=== PATIENT | male | born 1950 | race Caucasian/White ===

== ENCOUNTER 2017-08-28 17:43 | Emergency (ER) | payer MEDICARE ==
--- NOTE | 2017-08-28 18:09 | EDM.PDOC ---
ED HPI GENERAL MEDICAL PROBLEM - General Stated Complaint: LETHARGIC Time Seen by Provider: 08/28/17 17:45 Source of Information: Reports: EMS History Limitations: Reports: Uncooperative - History of Present Illness INITIAL COMMENTS - FREE TEXT/NARRATIVE: c/o weakness limited info available on pt arrival at ED per EMS pt was with family in [place] today, functional level uncertain return to assisted living, gets meals, self admiinsters meds, staffed called EMS for dec'd alertness vss stable here except for borderline low BP h/o PD does squeee fingers and wiggle toes on command, not answering questions RN trying to contact family septic w/u initiated altho he looks more to be in locked-in state - Related Data Allergies Allergy/AdvReac Type Severity Reaction Status Date / Time No Known Allergies Allergy Verified 08/28/17 17:52 Home Meds: Home Meds Amoxicillin 500 mg ASDIRECTED 08/28/17 [History] Carbidopa/Levodopa [Carbidopa-Levodopa 25-250] 1 tab 6XDAY 08/28/17 [History] Entacapone [Comtan] 200 mg PO 6XDAY 08/28/17 [History] Propranolol [Inderal LA 24 Hr] 40 mg PO BID 08/28/17 [History] atorvaSTATin [Lipitor] 10 mg PO BEDTIME 08/28/17 [History] glyBURIDE [Micronase] 5 mg BID 08/28/17 [History] metFORMIN HCl [Metformin HCl] 500 mg BID 08/28/17 [History] ED ROS GENERAL - Review of Systems Review Of Systems: See Below Constitutional: Reports: No Symptoms HEENT: Reports: No Symptoms Respiratory: Reports: No Symptoms Cardiovascular: Reports: No Symptoms Endocrine: Reports: No Symptoms GI/Abdominal: Reports: No Symptoms : Reports: No Symptoms Musculoskeletal: Reports: No Symptoms Skin: Reports: No Symptoms Neurological: Reports: Other (after D50 pt with no c/o's) Psychiatric: Reports: No Symptoms Hematologic/Lymphatic: Reports: No Symptoms Immunologic: Reports: No Symptoms ED EXAM, GENERAL - Physical Exam Exam: See Below Exam Limited By: Altered Mental Status General Appearance: WD/WN, No Apparent Distress Ears: Normal External Exam, Normal Canal Nose: Normal Inspection, Normal Mucosa, No Blood Throat/Mouth: Normal Inspection, Normal Lips, No Airway Compromise Head: Atraumatic Neck: Normal Inspection, Supple, Non-Tender, Full Range of Motion Respiratory/Chest: No Respiratory Distress, Lungs Clear, Normal Breath Sounds, No Accessory Muscle Use, Chest Non-Tender Cardiovascular: Regular Rate, Rhythm, No Edema, No Gallop, No JVD, No Murmur, No Rub GI/Abdominal: Normal Bowel Sounds, Soft, Non-Tender, No Distention Back Exam: Normal Inspection, Full Range of Motion, NT Extremities: Normal Inspection, Other (cogwheeling ext x 4, pill roll of R thumb and index finger, no jerks) Neurological: Normal Reflexes, Other (no obvious deficits, limited cooperation, squeezes hands b/l, wiggles toes b/l, DTR 1-2+ x 6, toes downgoing, no clonus , mild cogwheeling x 4) Skin Exam: Warm, Dry, Intact, Normal Color, No Rash Lymphatic: No Adenopathy Course - Vital Signs Last Recorded V/S: Last Vital Signs Temp 36.2 C 08/28/17 17:43 Pulse 55 L 08/28/17 17:43 Resp BP 114/90 08/28/17 17:43 Pulse Ox 97 08/28/17 17:43 - Orders/Labs/Meds Orders: Active Orders 24 hr Category Date Time Status Accu Check [Blood Glucose Check, Bedside] [RC] ONETIME Care 08/28/17 19:37 Active Chest 1V Frontal [CR] Stat Exams 08/28/17 17:52 Ordered Head wo Cont [CT] Stat Exams 08/28/17 17:52 Ordered CULTURE BLOOD [BC] Urgent Lab 08/28/17 17:54 Ordered CULTURE BLOOD [BC] Urgent Lab 08/28/17 17:54 Ordered UA W/MICROSCOPIC [URIN] Stat Lab 08/28/17 17:52 Ordered Blood Culture x2 Reflex Set [OM.PC] Urgent Oth 08/28/17 17:53 Ordered Labs: Laboratory Tests 08/28/17 08/28/17 08/28/17 Range/Units 18:10 18:10 18:10 WBC 8.5 (4.5-12.0) X10-3/uL RBC 4.27 L (4.30-5.75) x10(6)uL Hgb 14.1 (11.5-15.5) g/dL Hct 41.0 (30.0-51.3) % MCV 96.0 (80-96) fL MCH 33.0 (27.7-33.6) pg MCHC 34.3 (32.2-35.4) g/dL RDW 12.6 (11.5-15.5) % Plt Count 114 L (125-369) X10(3)uL MPV 10.2 (7.4-10.4) fL Neut % (Auto) 75.8 (46-82) % Lymph % (Auto) 12.6 L (13-37) % [place] % (Auto) 6.9 (4-12) % Eos % (Auto) 4 (1.0-5.0) % Baso % (Auto) 0 (0-2) % Neut # (Auto) 6.4 (1.6-8.3) # Lymph # (Auto) 1.1 (0.6-5.0) # [place] # (Auto) 0.6 (0.0-1.3) # Eos # (Auto) 0.4 (0.0-0.8) # Baso # (Auto) 0.0 (0.0-0.2) # Sodium 139 (135-145) mmol/L Potassium 5.1 (3.5-5.3) mmol/L Chloride 103 (100-110) mmol/L Carbon Dioxide 29 (21-32) mmol/L BUN 23 H (7-18) mg/dL Creatinine 0.8 (0.70-1.30) mg/dL Est Cr Clr Drug Dosing TNP Estimated GFR (MDRD) > 60 (>60) BUN/Creatinine Ratio 28.8 H (9-20) Glucose 43 L* (80-116) mg/dL POC Glucose (80-116) mg/dL Lactic Acid (0.4-2.2) mmol/L Calcium 9.1 (8.6-10.2) mg/dL Total Bilirubin 0.7 (0.1-1.3) mg/dL AST 18 (5-25) IU/L ALT 8 L (12-36) U/L Alkaline Phosphatase 77 (56-112) IU/L Troponin I < 0.017 L (<0.017-0.056) ng/mL C-Reactive Protein < 0.2 L (0.5-0.9) mg/dL NT-Pro-B Natriuret Pep 329 H (<=125) pg/mL Total Protein 7.1 (6.0-8.0) g/dL Albumin 3.8 (3.2-4.6) g/dL Globulin 3.3 g/dL Albumin/Globulin Ratio 1.2 TSH, Ultra Sensitive 1.32 (0.36-3.74) IU/mL 08/28/17 08/28/17 Range/Units 18:10 19:36 WBC (4.5-12.0) X10-3/uL RBC (4.30-5.75) x10(6)uL Hgb (11.5-15.5) g/dL Hct (30.0-51.3) % MCV (80-96) fL MCH (27.7-33.6) pg MCHC (32.2-35.4) g/dL RDW (11.5-15.5) % Plt Count (125-369) X10(3)uL MPV (7.4-10.4) fL Neut % (Auto) (46-82) % Lymph % (Auto) (13-37) % [place] % (Auto) (4-12) % Eos % (Auto) (1.0-5.0) % Baso % (Auto) (0-2) % Neut # (Auto) (1.6-8.3) # Lymph # (Auto) (0.6-5.0) # [place] # (Auto) (0.0-1.3) # Eos # (Auto) (0.0-0.8) # Baso # (Auto) (0.0-0.2) # Sodium (135-145) mmol/L Potassium (3.5-5.3) mmol/L Chloride (100-110) mmol/L Carbon Dioxide (21-32) mmol/L BUN (7-18) mg/dL Creatinine (0.70-1.30) mg/dL Est Cr Clr Drug Dosing Estimated GFR (MDRD) (>60) BUN/Creatinine Ratio (9-20) Glucose (80-116) mg/dL POC Glucose 128 H (80-116) mg/dL Lactic Acid 0.6 (0.4-2.2) mmol/L Calcium (8.6-10.2) mg/dL Total Bilirubin (0.1-1.3) mg/dL AST (5-25) IU/L ALT (12-36) U/L Alkaline Phosphatase (56-112) IU/L Troponin I (<0.017-0.056) ng/mL C-Reactive Protein (0.5-0.9) mg/dL NT-Pro-B Natriuret Pep (<=125) pg/mL Total Protein (6.0-8.0) g/dL Albumin (3.2-4.6) g/dL Globulin g/dL Albumin/Globulin Ratio TSH, Ultra Sensitive (0.36-3.74) IU/mL Meds: Medications Discontinued Medications Generic Name Dose Route Start Last Admin Trade Name Mitchq PRN Reason Stop Dose Admin Dextrose/Water 50 ml 08/28/17 18:53 Dextrose 50% In Water IVPUSH 08/28/17 18:54 ONETIME ONE Dextrose/Water Confirm 08/28/17 18:53 Dextrose 50% In Water Administered 08/28/17 18:54 Dose 50 ml .ROUTE .STK-MED ONE Sodium Chloride 1,000 mls @ 999 mls/hr 08/28/17 19:30 Normal Saline IV 09/01/17 19:26 ASDIRECTED LULU - Re-Assessments/Exams Free Text/Narrative Re-Assessment/Exam: 08/28/17 19:19 initial BS per EMS 71, however here lab reports 43, pt given amp D50 and felt fine son now here pt with no previous low BS, reports he did not feel right on the return ride from [place] with his sister he is looking to get a new w/c after having one on loan for 1m, has been in discussion with PCP in this regard high BS once when dx with DM, says his A1C have been good and Dr Conroy has advised him that he did not need to check it no comparison labs does have inc'd BUN 23 c/w dehydration vs possible mild HF (BNP also inc'd 329, which may be acute from hypoglycemia and adrenergic stress rather than chronic) no evidence infection pt agrees to f/u with Free Text/Narrative Re-Assessment/Exam: 08/28/17 20:06 CxR shows mild pul congestion and borderline cardiomegaly echo cardiogram scheduled in 2d at 10 AM d/w PCP Dr Conroy at home to alert him about potential new cardiac and renal issues will stop the glyburide for now pt ate peanut butter and crackers here and agreed to eat more when he got home repeat BS > 100 Departure - Departure Time of Disposition: 20:09 Disposition: Home, Self-Care 01 Condition: Good Clinical Impression: Hypoglycemia, Heart failure, Pulmonary vascular congestion, Renal insufficiency , mild - Discharge Information Referrals: PCP,None [Ordering Only Provider] - Forms: ED Department Discharge Additional Instructions: Come to [facility] for a echocardigram on August 30 at 10 am. Make appointment to see Dr Conroy in 2 days on Saturday afternoon. Stop the glyburide. Continue your other meds. Eat something when you get home tonight. Increase your fluids without caffeine. If you are feeling lightheaded or not yourself, check your blood sugar if possible and then drink some orange juice. Or just drink some orange juice to see if it helps feel better. Do not skip meals. May eat a light evening snack. Call your Physician or Return to Emergency Department if: * Your condition worsens in any way. * You develop fever greater than 100.4. * You have vomitting that does not stop with medications. * You have pain that is not controlled with medications. - My Orders Last 24 Hours: My Active Orders 08/28/17 17:52 Chest 1V Frontal [CR] Stat Head wo Cont [CT] Stat UA W/MICROSCOPIC [URIN] Stat 08/28/17 17:53 Blood Culture x2 Reflex Set [OM.PC] Urgent 08/28/17 17:54 CULTURE BLOOD [BC] Urgent CULTURE BLOOD [BC] Urgent 08/28/17 19:37 Accu Check [Blood Glucose Check, Bedside] [RC] ONETIME - Assessment/Plan Last 24 Hours: My Active Orders 08/28/17 17:52 Chest 1V Frontal [CR] Stat Head wo Cont [CT] Stat UA W/MICROSCOPIC [URIN] Stat 08/28/17 17:53 Blood Culture x2 Reflex Set [OM.PC] Urgent 08/28/17 17:54 CULTURE BLOOD [BC] Urgent CULTURE BLOOD [BC] Urgent 08/28/17 19:37 Accu Check [Blood Glucose Check, Bedside] [RC] ONETIME
[2017-08-28] MEDS ORDERED: 50% Dextrose in Water 50 ML Syringe ONE (18:53)
[2017-08-28] MEDS ORDERED: 50% Dextrose in Water 50 ML Syringe IVPUSH ONE (18:53)
[2017-08-28] MEDS ORDERED: Sodium Chloride 0.9% 1,000 ML IV SCH (19:30)
[2017-08-28] MEDS ORDERED: Sodium Chloride 0.9% 10 ML Syringe FLUSH PRN (20:22)
--- NOTE | 2017-08-30 11:01 | CR ---
INDICATION: Weak. CHEST: An AP upright portable view of the chest was obtained 08/28/2017 - no comparisons. The heart appears slightly enlarged. The aorta is tortuous with calcification in the arch. Overlying snaps and EKG leads are noted. Central infiltration is noted which may be on the basis of interstitial lung edema or possibly pneumonia and/or fibrosis. The upper lung field pulmonary vasculature did not appear grossly prominent to strongly suggest CHF, however. No gross consolidating pneumonia or definite effusion was seen. IMPRESSION: Bilateral interstitial changes centrally could represent pulmonary edema, but should be correlated clinically. The heart is enlarged and a mild degree of CHF could be present, but is not definite, since the upper lung field pulmonary vasculature does not appear significantly prominent. The interstitial changes could be on the basis of other than pulmonary vascular congestion, such as pneumonia and possibly fibrosis. MTDD
== END 2017-08-28 20:20 | disposition home or self-care (01) ==
LOC: FB.ED 17:43
DX: I50.9 Heart failure, unspecified (principal); E16.2 Hypoglycemia, unspecified; N28.9 Disorder of kidney and ureter, unspecified; R09.89 Other specified symptoms and signs involving the circulatory and respiratory systems
CPT/HCPCS: 36415; 70450; 71045; 80053; 81001; 82962; 83605; 83880; 84443; 84484; 85025; 86140; 87040; 96374; 99284

== ENCOUNTER 2021-03-18 12:27 | Inpatient (IN) | payer MEDICARE ==
--- NOTE | 2021-03-18 12:35 | EDM.PDOC ---
ED HPI GENERAL MEDICAL PROBLEM - General Stated Complaint: general Time Seen by Provider: 03/18/21 12:29 Source of Information: Reports: Patient, EMS History Limitations: Reports: Other (sever parkinson ) - History of Present Illness INITIAL COMMENTS - FREE TEXT/NARRATIVE: pt had unwitnessed fall at assisted living in his bathroom, pt head was found stuck in area between tolet seat and wall, he was alert, c/o pain at right hip , pt is minimally verbal and unable to provide Hx, he has Hx of frequent falls, and sever Parkinson according to staff at assisted living he is at base line in term of level of functions after the fall. - Related Data Allergies Allergy/AdvReac Type Severity Reaction Status Date / Time No Known Allergies Allergy Verified 03/18/21 12:57 Home Meds: Home Meds Amoxicillin 500 mg ASDIRECTED 08/28/17 [History] Carbidopa/Levodopa [Carbidopa-Levodopa 25-250] 1 tab 6XDAY 08/28/17 [History] Entacapone [Comtan] 200 mg PO 6XDAY 08/28/17 [History] Propranolol [Inderal LA 24 Hr] 40 mg PO BID 08/28/17 [History] atorvaSTATin [Lipitor] 10 mg PO BEDTIME 08/28/17 [History] glyBURIDE [Micronase] 5 mg BID 08/28/17 [History] metFORMIN HCl [Metformin HCl] 500 mg BID 08/28/17 [History] Past Medical History Cardiovascular History: Reports: High Cholesterol Neurological History: Reports: Parkinson's Endocrine/Metabolic History: Reports: Diabetes, Type II - Infectious Disease History Infectious Disease History: Reports: Chicken Pox, Measles, Mumps Social & Family History - Family History Family Medical History: No Pertinent Family History - Caffeine Use Caffeine Use: Reports: None ED ROS GENERAL - Review of Systems Review Of Systems: Unable To Obtain (Parkinson) Reason Not Obtained: Parkinson ED EXAM, GENERAL - Physical Exam Exam: See Below Exam Limited By: Other (Parkinson) General Appearance: Alert, Other (moves extremities trak with eyes, makes few words. ) Ears: Normal Canal, Normal TMs Nose: Normal Inspection Throat/Mouth: Normal Inspection, Normal Oropharynx Head: Other (small abrasions over the top and right side of scalp , no hematomas. ) Neck: Normal Inspection, Supple Respiratory/Chest: No Respiratory Distress, Lungs Clear Cardiovascular: Normal Peripheral Pulses, Regular Rate, Rhythm GI/Abdominal: Normal Bowel Sounds, Soft Back Exam: Normal Inspection Extremities: Other (groseely intact but seems to be tender with movement of right hip. ) Neurological: Alert, Other (moves all extremities and CN are grossely intact. ) Skin Exam: Warm Course - Vital Signs Text/Narrative:: pt has urosepsis, imaging results shows no acute findings or injuries after the fall. pt condition was discussed w Dr Miller and he was in acceptance of pt care. Last Recorded V/S: Last Vital Signs Temp 37.7 C 03/18/21 12:27 Pulse 95 03/18/21 12:27 Resp 18 03/18/21 12:27 BP 159/96 H 03/18/21 12:27 Pulse Ox 97 03/18/21 12:27 - Orders/Labs/Meds Orders: Active Orders 24 hr Category Date Time Status Head wo Cont [CT] Stat Exams 03/18/21 12:37 Taken Hip Min 2V or 3V w Pelvis Rt [CR] Stat Exams 03/18/21 12:37 Taken CULTURE URINE [RM] Stat Lab 03/18/21 14:29 Ordered Labs: Laboratory Tests 03/18/21 03/18/21 03/18/21 Range/Units 12:50 12:50 14:10 WBC 21.1 H (3.2-10.1) x10-3/uL RBC 3.92 (3.90-5.90) x10(6)uL Hgb 11.9 L (12.9-17.7) g/dL Hct 36.3 L (38.3-50.1) % MCV 92.7 (80.8-98.7) fL MCH 30.3 (27.0-33.3) pg MCHC 32.7 (28.7-35.3) g/dL RDW 12.8 (12.4-15.0) % Plt Count 120 (117-477) x10(3)uL MPV 9.7 (6.7-11.0) fL Add Manual Diff Yes Neutrophils % (Manual) 94 H (46-82) % Lymphocytes % (Manual) 4 L (13-37) % Monocytes % (Manual) 2 L (4-12) % Sodium 137 (135-145) mmol/L Potassium 4.4 (3.5-5.3) mmol/L Chloride 102 (100-110) mmol/L Carbon Dioxide 24 (21-32) mmol/L BUN 29 H (7-18) mg/dL Creatinine 1.3 (0.70-1.30) mg/dL Est Cr Clr Drug Dosing TNP Estimated GFR (MDRD) 55 L (>60) BUN/Creatinine Ratio 22.3 H (9-20) Glucose 94 (80-116) mg/dL Calcium 8.8 (8.6-10.2) mg/dL Total Bilirubin 1.9 H (0.1-1.3) mg/dL AST 30 H D (5-25) IU/L ALT 8 L (12-36) U/L Alkaline Phosphatase 105 (56-112) IU/L Total Protein 7.1 (6.0-8.0) g/dL Albumin 3.5 (3.2-4.6) g/dL Globulin 3.6 g/dL Albumin/Globulin Ratio 1.0 Urine Color Yellow (YELLOW) Urine Appearance Cloudy (CLEAR) Urine pH 5.0 (5.0-6.5) Ur Specific [place] 1.015 (1.010-1.025) Urine Protein Trace (NEGATIVE) mg/dL Urine Glucose (UA) Normal (NORMAL) mg/dL Urine Ketones 50 H (NEGATIVE) mg/dL Urine Occult Blood Large H (NEGATIVE) Urine Nitrite Positive H (NEGATIVE) Urine Bilirubin Negative (NEGATIVE) Urine Urobilinogen Normal (NEGATIVE) mg/dL Ur Leukocyte Esterase Moderate H (NEGATIVE) Urine RBC 30-40 H (0-5) Urine WBC 40-50 H (0-5) Ur Squamous Epith Cells Few H (NS,R,O) Urine Bacteria Many H (NS) Departure - Departure Time of Disposition: 14:41 Disposition: Admitted As Inpatient 67 Clinical Impression: Sepsis due to urinary tract infection - Discharge Information Sepsis Event Note (ED) - Focused Exam Vital Signs: Vital Signs Temp Pulse Resp BP Pulse Ox 03/18/21 12:27 37.7 C 95 18 159/96 H 97 - My Orders Last 24 Hours: My Active Orders 03/18/21 12:37 Head wo Cont [CT] Stat Hip Min 2V or 3V w Pelvis Rt [CR] Stat 03/18/21 14:29 CULTURE URINE [RM] Stat - Assessment/Plan Last 24 Hours: My Active Orders 03/18/21 12:37 Head wo Cont [CT] Stat Hip Min 2V or 3V w Pelvis Rt [CR] Stat 03/18/21 14:29 CULTURE URINE [RM] Stat
[2021-03-18] MEDS ORDERED: Ciprofloxacin in D5W 200 MG in Premix Bag 1 BAG IV SCH ×2 (15:00)
[2021-03-18] MEDS: Sodium Chloride 0.9% 1,000 ML IV SCH (17:11)
[2021-03-18] MEDS: Ciprofloxacin in D5W 200 MG in Premix Bag 1 BAG IV SCH ×2 (17:24)
--- NOTE | 2021-03-18 18:18 | PCM.HP.2 ---
H&P History of Present Illness - General Date of Service: 03/18/21 Admit Problem/Dx: Admission Diagnosis/Problem Admission Diagnosis/Problem Urinary tract bacterial infections History Limitations: Reports: Language Barrier - History of Present Illness Initial Comments - Free Text/Narative: Akash is a 70-year-old male who came in from assisted living, after fall. He was found in the bathroom, unwitnessed fall. He complained of mild hip pain, is found to be generally weak and nonambulatory. Typically, he walks with a walker at home in his own home but he is in an assisted living situation at [facility]. He has severe. In the ED, he was found to a negative CT of the head, hip x-ray, but I white cell count of 21,000. His urine also had positive nitrites and white cells. Right Hip Pain Score (Numeric/FACES): 5 - Related Data Allergies/Adverse Reactions: Allergies Allergy/AdvReac Type Severity Reaction Status Date / Time No Known Allergies Allergy Verified 03/18/21 17:11 Home Medications: Home Meds Amoxicillin 500 mg ASDIRECTED 08/28/17 [History] Carbidopa/Levodopa [Carbidopa-Levodopa 25-250] 25 - 100 mg PO 5XDAY 08/28/17 [History] Entacapone [Comtan] 200 mg PO 6XDAY 08/28/17 [History] Propranolol [Inderal LA 24 Hr] 40 mg PO BID 08/28/17 [History] atorvaSTATin [Lipitor] 10 mg PO BEDTIME 08/28/17 [History] glyBURIDE [Micronase] 5 mg BID 08/28/17 [History] metFORMIN HCl [Metformin HCl] 500 mg BID 08/28/17 [History] Aspirin 81 mg PO DAILY 03/18/21 [History] Carbidopa/Levodopa [Carbidopa-Levo 25-250 mg Odt] 25 - 250 mg PO Q3H 03/18/21 [History] Past Medical History Cardiovascular History: Reports: High Cholesterol Neurological History: Reports: Parkinson's Endocrine/Metabolic History: Reports: Diabetes, Type II - Infectious Disease History Infectious Disease History: Reports: Chicken Pox, Measles, Mumps Social & Family History - Family History Family Medical History: No Pertinent Family History - Tobacco Use Tobacco Use Status *Q: Unknown Ever Used Tobacco - Caffeine Use Caffeine Use: Reports: None H&P Review of Systems - Review of Systems: Review Of Systems: Comprehensive ROS is negative, except as noted in HPI. Exam - Exam Exam: See Below - Vital Signs Vital Signs: Last Vital Signs Temp 100.0 F 03/18/21 17:29 Pulse 80 03/18/21 17:29 Resp 14 03/18/21 17:29 BP 159/104 H 03/18/21 17:29 Pulse Ox 99 03/18/21 17:29 - Exam General: Alert, Oriented HEENT: PERRLA, Conjunctiva Clear Neck: Supple, Lymphadenopathy Lungs: Clear to Auscultation Cardiovascular: Regular Rate GI/Abdominal Exam: Normal Bowel Sounds, Soft Neuro Extensive - Mental Status: Alert, Oriented x3 Psychiatric: Alert, Depressed - Patient Data Lab Results Last 24 hrs: Laboratory Results - last 24 hr 03/18/21 03/18/21 03/18/21 Range/Units 12:50 12:50 14:10 WBC 21.1 H (3.2-10.1) x10-3/uL RBC 3.92 (3.90-5.90) x10(6)uL Hgb 11.9 L (12.9-17.7) g/dL Hct 36.3 L (38.3-50.1) % MCV 92.7 (80.8-98.7) fL MCH 30.3 (27.0-33.3) pg MCHC 32.7 (28.7-35.3) g/dL RDW 12.8 (12.4-15.0) % Plt Count 120 (117-477) x10(3)uL MPV 9.7 (6.7-11.0) fL Add Manual Diff Yes Neutrophils % (Manual) 94 H (46-82) % Lymphocytes % (Manual) 4 L (13-37) % Monocytes % (Manual) 2 L (4-12) % Sodium 137 (135-145) mmol/L Potassium 4.4 (3.5-5.3) mmol/L Chloride 102 (100-110) mmol/L Carbon Dioxide 24 (21-32) mmol/L BUN 29 H (7-18) mg/dL Creatinine 1.3 (0.70-1.30) mg/dL Est Cr Clr Drug Dosing TNP Estimated GFR (MDRD) 55 L (>60) BUN/Creatinine Ratio 22.3 H (9-20) Glucose 94 (80-116) mg/dL Calcium 8.8 (8.6-10.2) mg/dL Total Bilirubin 1.9 H (0.1-1.3) mg/dL AST 30 H D (5-25) IU/L ALT 8 L (12-36) U/L Alkaline Phosphatase 105 (56-112) IU/L Total Protein 7.1 (6.0-8.0) g/dL Albumin 3.5 (3.2-4.6) g/dL Globulin 3.6 g/dL Albumin/Globulin Ratio 1.0 Urine Color Yellow (YELLOW) Urine Appearance Cloudy (CLEAR) Urine pH 5.0 (5.0-6.5) Ur Specific [place] 1.015 (1.010-1.025) Urine Protein Trace (NEGATIVE) mg/dL Urine Glucose (UA) Normal (NORMAL) mg/dL Urine Ketones 50 H (NEGATIVE) mg/dL Urine Occult Blood Large H (NEGATIVE) Urine Nitrite Positive H (NEGATIVE) Urine Bilirubin Negative (NEGATIVE) Urine Urobilinogen Normal (NEGATIVE) mg/dL Ur Leukocyte Esterase Moderate H (NEGATIVE) Urine RBC 30-40 H (0-5) Urine WBC 40-50 H (0-5) Ur Squamous Epith Cells Few H (NS,R,O) Urine Bacteria Many H (NS) SARS-CoV-2 RNA (QIAN) (NEGATIVE) 03/18/21 Range/Units 15:20 WBC (3.2-10.1) x10-3/uL RBC (3.90-5.90) x10(6)uL Hgb (12.9-17.7) g/dL Hct (38.3-50.1) % MCV (80.8-98.7) fL MCH (27.0-33.3) pg MCHC (28.7-35.3) g/dL RDW (12.4-15.0) % Plt Count (117-477) x10(3)uL MPV (6.7-11.0) fL Add Manual Diff Neutrophils % (Manual) (46-82) % Lymphocytes % (Manual) (13-37) % Monocytes % (Manual) (4-12) % Sodium (135-145) mmol/L Potassium (3.5-5.3) mmol/L Chloride (100-110) mmol/L Carbon Dioxide (21-32) mmol/L BUN (7-18) mg/dL Creatinine (0.70-1.30) mg/dL Est Cr Clr Drug Dosing Estimated GFR (MDRD) (>60) BUN/Creatinine Ratio (9-20) Glucose (80-116) mg/dL Calcium (8.6-10.2) mg/dL Total Bilirubin (0.1-1.3) mg/dL AST (5-25) IU/L ALT (12-36) U/L Alkaline Phosphatase (56-112) IU/L Total Protein (6.0-8.0) g/dL Albumin (3.2-4.6) g/dL Globulin g/dL Albumin/Globulin Ratio Urine Color (YELLOW) Urine Appearance (CLEAR) Urine pH (5.0-6.5) Ur Specific [place] (1.010-1.025) Urine Protein (NEGATIVE) mg/dL Urine Glucose (UA) (NORMAL) mg/dL Urine Ketones (NEGATIVE) mg/dL Urine Occult Blood (NEGATIVE) Urine Nitrite (NEGATIVE) Urine Bilirubin (NEGATIVE) Urine Urobilinogen (NEGATIVE) mg/dL Ur Leukocyte Esterase (NEGATIVE) Urine RBC (0-5) Urine WBC (0-5) Ur Squamous Epith Cells (NS,R,O) Urine Bacteria (NS) SARS-CoV-2 RNA (QIAN) Negative (NEGATIVE) Result Diagrams: 03/18/21 12:50 03/18/21 12:50 Sepsis Event Note - Focused Exam Vital Signs: Vital Signs Temp Pulse Resp BP Pulse Ox 03/18/21 17:29 100.0 F 80 14 159/104 H 99 03/18/21 16:30 100 F 97 18 177/100 H 97 03/18/21 12:27 100 F 95 18 159/96 H 97 - Problem List (1) UTI (urinary tract infection) SNOMED Code(s): 19861632 ICD Code: N39.0 - URINARY TRACT INFECTION, SITE NOT SPECIFIED Status: Acute Current Visit: Yes Qualifiers: Urinary tract infection type: site unspecified Hematuria presence: without hematuria Qualified Code(s): N39.0 - Urinary tract infection, site not specified (2) Frequent falls SNOMED Code(s): 361301864 ICD Code: R29.6 - REPEATED FALLS Status: Acute Current Visit: Yes (3) Parkinson disease SNOMED Code(s): 93252831 ICD Code: G20 - PARKINSON'S DISEASE Status: Chronic Current Visit: Yes (4) Controlled type 2 diabetes mellitus SNOMED Code(s): 63710143, 332516838 ICD Code: E11.9 - TYPE 2 DIABETES MELLITUS WITHOUT COMPLICATIONS Status: Acute Current Visit: Yes Qualifiers: 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 Problem List Initiated/Reviewed/Updated: Yes Orders Last 24hrs: Active Orders 24 hr Category Date Time Status Patient Status [ADT] Routine ADT 03/18/21 14:43 Active Oxygen Therapy [RC] PRN Care 03/18/21 14:43 Active VTE/DVT Education [RC] Per Unit Routine Care 03/18/21 14:43 Active Vital Signs [RC] Q4H Care 03/18/21 14:43 Active Head wo Cont [CT] Stat Exams 03/18/21 12:37 Taken Hip Min 2V or 3V w Pelvis Rt [CR] Stat Exams 03/18/21 12:37 Taken CBC WITH AUTO DIFF [HEME] AM Lab 03/19/21 05:11 Ordered COMPREHENSIVE METABOLIC PN,CMP [CHEM] AM Lab 03/19/21 05:11 Ordered CULTURE URINE [RM] Stat Lab 03/18/21 14:10 Received Carbidopa/Levodopa [Sinemet 25-250 mg] Med 03/18/21 18:00 Active 1 tab PO 6XDAY Ciprofloxacin in D5W [Cipro in D5W 200 MG/100 ML] 200 Med 03/18/21 17:30 Active mg Premix Bag 1 bag IV Q12H Entacapone [Comtan] Med 03/18/21 18:00 Active 200 mg PO 6XDAY Propranolol [Inderal LA] Med 03/18/21 21:00 Active 40 mg PO BID Sodium Chloride 0.9% [Normal Saline] 1,000 ml Med 03/18/21 14:45 Active IV ASDIRECTED glyBURIDE [Micronase] Med 03/18/21 21:00 Active 5 mg PO BID metFORMIN [Glucophage] Med 03/18/21 21:00 Active 500 mg PO BID Resuscitation Status Routine Resus Stat 03/18/21 14:42 Ordered Medication Orders Carbidopa/Levodopa (Carbidopa/Levodopa 25-250 Mg Tab) 1 tab PO 6XDAY [facility] Entacapone (Entacapone 200 Mg Tab) 200 mg PO 6XDAY [facility] Glyburide (Glyburide 5 Mg Tab) 5 mg PO BID [facility] Sodium Chloride (Normal Saline) 1,000 mls @ 125 mls/hr IV ASDIRECTED [facility] Last Admin: 03/18/21 17:11 Dose: 125 mls/hr Documented by: VIVIANE Ciprofloxacin/Dextrose 200 mg/ (Premix) 100 mls @ 100 mls/hr IV Q12H [facility] Last Admin: 03/18/21 17:24 Dose: 100 mls/hr Documented by: MEGAN Metformin HCl (Metformin 500 Mg Tab) 500 mg PO BID [facility] Propranolol HCl (Propranolol 80 Mg Cap.Er) 40 mg PO BID [facility] Assessment/Plan Comment:: Admit the patient for IV ciprofloxacin, continue the rest of his prescriptions. Consult physical therapy. Await urine cultures.
[2021-03-18] MEDS: Carbidopa/Levodopa 25-250 MG Tab PO SCH ×2 (18:43→20:56)
[2021-03-18] MEDS: Propranolol 80 MG Cap.ER PO SCH (20:55)
[2021-03-18] MEDS: glyBURIDE 5 MG Tab PO SCH (20:55)
[2021-03-18] MEDS: metFORMIN 500 MG Tab PO SCH (20:55)
[2021-03-18] MEDS: Entacapone 200 MG Tab PO SCH (22:43)
[2021-03-19] MEDS: Sodium Chloride 0.9% 1,000 ML IV SCH (03:28)
[2021-03-19] MEDS: Ciprofloxacin in D5W 200 MG in Premix Bag 1 BAG IV SCH ×4 (04:42→17:36)
[2021-03-19] MEDS: Carbidopa/Levodopa 25-250 MG Tab PO SCH ×6 (05:35→20:07)
[2021-03-19] MEDS: Entacapone 200 MG Tab PO SCH ×6 (05:35→22:41)
--- NOTE | 2021-03-19 09:00 | PCM.PN ---
- General Info Date of Service: 03/19/21 Subjective Update: He is noted to be weak, unable to ambulate independently.Poor historian Functional Status: Reports: Pain Controlled - Review of Systems HEENT: Reports: No Symptoms Pulmonary: Reports: No Symptoms Cardiovascular: Reports: No Symptoms Gastrointestinal: Reports: No Symptoms - Patient Data Vitals - Most Recent: Last Vital Signs Temp 96.8 F L 03/19/21 07:39 Pulse 61 03/19/21 07:39 Resp 18 03/19/21 07:39 BP 103/64 03/19/21 07:39 Pulse Ox 96 03/19/21 07:39 Weight - Most Recent: 72.575 kg I&O - Last 24 Hours: Intake & Output 03/18/21 03/19/21 03/19/21 22:59 06:59 14:59 Intake Total 773 Balance 773 Lab Results Last 24 Hours: Laboratory Results - last 24 hr 03/18/21 03/18/21 03/18/21 Range/Units 12:50 12:50 14:10 WBC 21.1 H (3.2-10.1) x10-3/uL RBC 3.92 (3.90-5.90) x10(6)uL Hgb 11.9 L (12.9-17.7) g/dL Hct 36.3 L (38.3-50.1) % MCV 92.7 (80.8-98.7) fL MCH 30.3 (27.0-33.3) pg MCHC 32.7 (28.7-35.3) g/dL RDW 12.8 (12.4-15.0) % Plt Count 120 (117-477) x10(3)uL MPV 9.7 (6.7-11.0) fL Add Manual Diff Yes Neutrophils % (Manual) 94 H (46-82) % Band Neutrophils % (0-6) % Lymphocytes % (Manual) 4 L (13-37) % Monocytes % (Manual) 2 L (4-12) % Sodium 137 (135-145) mmol/L Potassium 4.4 (3.5-5.3) mmol/L Chloride 102 (100-110) mmol/L Carbon Dioxide 24 (21-32) mmol/L BUN 29 H (7-18) mg/dL Creatinine 1.3 (0.70-1.30) mg/dL Est Cr Clr Drug Dosing TNP Estimated GFR (MDRD) 55 L (>60) BUN/Creatinine Ratio 22.3 H (9-20) Glucose 94 (80-116) mg/dL Calcium 8.8 (8.6-10.2) mg/dL Total Bilirubin 1.9 H (0.1-1.3) mg/dL AST 30 H D (5-25) IU/L ALT 8 L (12-36) U/L Alkaline Phosphatase 105 (56-112) IU/L Total Protein 7.1 (6.0-8.0) g/dL Albumin 3.5 (3.2-4.6) g/dL Globulin 3.6 g/dL Albumin/Globulin Ratio 1.0 Urine Color Yellow (YELLOW) Urine Appearance Cloudy (CLEAR) Urine pH 5.0 (5.0-6.5) Ur Specific [place] 1.015 (1.010-1.025) Urine Protein Trace (NEGATIVE) mg/dL Urine Glucose (UA) Normal (NORMAL) mg/dL Urine Ketones 50 H (NEGATIVE) mg/dL Urine Occult Blood Large H (NEGATIVE) Urine Nitrite Positive H (NEGATIVE) Urine Bilirubin Negative (NEGATIVE) Urine Urobilinogen Normal (NEGATIVE) mg/dL Ur Leukocyte Esterase Moderate H (NEGATIVE) Urine RBC 30-40 H (0-5) Urine WBC 40-50 H (0-5) Ur Squamous Epith Cells Few H (NS,R,O) Urine Bacteria Many H (NS) SARS-CoV-2 RNA (QIAN) (NEGATIVE) 03/18/21 03/19/21 03/19/21 Range/Units 15:20 06:08 06:08 WBC 21.4 H (3.2-10.1) x10-3/uL RBC 4.05 (3.90-5.90) x10(6)uL Hgb 12.2 L (12.9-17.7) g/dL Hct 37.9 L (38.3-50.1) % MCV 93.7 (80.8-98.7) fL MCH 30.2 (27.0-33.3) pg MCHC 32.2 (28.7-35.3) g/dL RDW 13.1 (12.4-15.0) % Plt Count 113 L (117-477) x10(3)uL MPV 9.7 (6.7-11.0) fL Add Manual Diff Yes Neutrophils % (Manual) 88 H (46-82) % Band Neutrophils % 3 (0-6) % Lymphocytes % (Manual) 6 L (13-37) % Monocytes % (Manual) 3 L (4-12) % Sodium 136 (135-145) mmol/L Potassium 3.7 (3.5-5.3) mmol/L Chloride 103 (100-110) mmol/L Carbon Dioxide 27 (21-32) mmol/L BUN 20 H (7-18) mg/dL Creatinine 0.9 (0.70-1.30) mg/dL Est Cr Clr Drug Dosing 79.52 Estimated GFR (MDRD) > 60 (>60) BUN/Creatinine Ratio 22.2 H (9-20) Glucose 56 L (80-116) mg/dL Calcium 8.3 L (8.6-10.2) mg/dL Total Bilirubin 1.0 (0.1-1.3) mg/dL AST 84 H D (5-25) IU/L ALT 15 D (12-36) U/L Alkaline Phosphatase 101 (56-112) IU/L Total Protein 6.6 (6.0-8.0) g/dL Albumin 2.8 L (3.2-4.6) g/dL Globulin 3.8 g/dL Albumin/Globulin Ratio 0.7 Urine Color (YELLOW) Urine Appearance (CLEAR) Urine pH (5.0-6.5) Ur Specific [place] (1.010-1.025) Urine Protein (NEGATIVE) mg/dL Urine Glucose (UA) (NORMAL) mg/dL Urine Ketones (NEGATIVE) mg/dL Urine Occult Blood (NEGATIVE) Urine Nitrite (NEGATIVE) Urine Bilirubin (NEGATIVE) Urine Urobilinogen (NEGATIVE) mg/dL Ur Leukocyte Esterase (NEGATIVE) Urine RBC (0-5) Urine WBC (0-5) Ur Squamous Epith Cells (NS,R,O) Urine Bacteria (NS) SARS-CoV-2 RNA (QIAN) Negative (NEGATIVE) Doe Results Last 24 Hours: Microbiology 03/18/21 14:10 Urine Culture - Preliminary Urine, Voided Gram Negative Rods Med Orders - Current: Current Medications Carbidopa/Levodopa (Carbidopa/Levodopa 25-250 Mg Tab) 1 tab PO 6XDAY [facility] Last Admin: 03/19/21 05:35 Dose: 1 tab Documented by: Entacapone (Entacapone 200 Mg Tab) 200 mg PO 6XDAY [facility] Last Admin: 03/19/21 05:35 Dose: Not Given Documented by: Glyburide (Glyburide 5 Mg Tab) 5 mg PO BID [facility] Last Admin: 03/18/21 20:55 Dose: 5 mg Documented by: Sodium Chloride (Normal Saline) 1,000 mls @ 125 mls/hr IV ASDIRECTED [facility] Last Admin: 03/19/21 03:28 Dose: 125 mls/hr Documented by: Ciprofloxacin/Dextrose 200 mg/ (Premix) 100 mls @ 100 mls/hr IV Q12H [facility] Last Admin: 03/19/21 04:42 Dose: 100 mls/hr Documented by: Metformin HCl (Metformin 500 Mg Tab) 500 mg PO BID [facility] Last Admin: 03/18/21 20:55 Dose: 500 mg Documented by: Propranolol HCl (Propranolol 80 Mg Cap.Er) 40 mg PO BID [facility] Last Admin: 03/18/21 20:55 Dose: 40 mg Documented by: Discontinued Medications Ciprofloxacin/Dextrose 200 mg/ (Premix) 100 mls @ 100 mls/hr IV Q12H [facility] Last Admin: 03/18/21 17:16 Dose: Not Given Documented by: - Exam General: Lethargic Neck: Supple Lungs: Clear to Auscultation Cardiovascular: Regular Rate GI/Abdominal Exam: Normal Bowel Sounds - Patient Data Lab Results Last 24 hrs: Laboratory Results - last 24 hr 03/18/21 03/18/21 03/18/21 Range/Units 12:50 12:50 14:10 WBC 21.1 H (3.2-10.1) x10-3/uL RBC 3.92 (3.90-5.90) x10(6)uL Hgb 11.9 L (12.9-17.7) g/dL Hct 36.3 L (38.3-50.1) % MCV 92.7 (80.8-98.7) fL MCH 30.3 (27.0-33.3) pg MCHC 32.7 (28.7-35.3) g/dL RDW 12.8 (12.4-15.0) % Plt Count 120 (117-477) x10(3)uL MPV 9.7 (6.7-11.0) fL Add Manual Diff Yes Neutrophils % (Manual) 94 H (46-82) % Band Neutrophils % (0-6) % Lymphocytes % (Manual) 4 L (13-37) % Monocytes % (Manual) 2 L (4-12) % Sodium 137 (135-145) mmol/L Potassium 4.4 (3.5-5.3) mmol/L Chloride 102 (100-110) mmol/L Carbon Dioxide 24 (21-32) mmol/L BUN 29 H (7-18) mg/dL Creatinine 1.3 (0.70-1.30) mg/dL Est Cr Clr Drug Dosing TNP Estimated GFR (MDRD) 55 L (>60) BUN/Creatinine Ratio 22.3 H (9-20) Glucose 94 (80-116) mg/dL Calcium 8.8 (8.6-10.2) mg/dL Total Bilirubin 1.9 H (0.1-1.3) mg/dL AST 30 H D (5-25) IU/L ALT 8 L (12-36) U/L Alkaline Phosphatase 105 (56-112) IU/L Total Protein 7.1 (6.0-8.0) g/dL Albumin 3.5 (3.2-4.6) g/dL Globulin 3.6 g/dL Albumin/Globulin Ratio 1.0 Urine Color Yellow (YELLOW) Urine Appearance Cloudy (CLEAR) Urine pH 5.0 (5.0-6.5) Ur Specific [place] 1.015 (1.010-1.025) Urine Protein Trace (NEGATIVE) mg/dL Urine Glucose (UA) Normal (NORMAL) mg/dL Urine Ketones 50 H (NEGATIVE) mg/dL Urine Occult Blood Large H (NEGATIVE) Urine Nitrite Positive H (NEGATIVE) Urine Bilirubin Negative (NEGATIVE) Urine Urobilinogen Normal (NEGATIVE) mg/dL Ur Leukocyte Esterase Moderate H (NEGATIVE) Urine RBC 30-40 H (0-5) Urine WBC 40-50 H (0-5) Ur Squamous Epith Cells Few H (NS,R,O) Urine Bacteria Many H (NS) SARS-CoV-2 RNA (QIAN) (NEGATIVE) 03/18/21 03/19/21 03/19/21 Range/Units 15:20 06:08 06:08 WBC 21.4 H (3.2-10.1) x10-3/uL RBC 4.05 (3.90-5.90) x10(6)uL Hgb 12.2 L (12.9-17.7) g/dL Hct 37.9 L (38.3-50.1) % MCV 93.7 (80.8-98.7) fL MCH 30.2 (27.0-33.3) pg MCHC 32.2 (28.7-35.3) g/dL RDW 13.1 (12.4-15.0) % Plt Count 113 L (117-477) x10(3)uL MPV 9.7 (6.7-11.0) fL Add Manual Diff Yes Neutrophils % (Manual) 88 H (46-82) % Band Neutrophils % 3 (0-6) % Lymphocytes % (Manual) 6 L (13-37) % Monocytes % (Manual) 3 L (4-12) % Sodium 136 (135-145) mmol/L Potassium 3.7 (3.5-5.3) mmol/L Chloride 103 (100-110) mmol/L Carbon Dioxide 27 (21-32) mmol/L BUN 20 H (7-18) mg/dL Creatinine 0.9 (0.70-1.30) mg/dL Est Cr Clr Drug Dosing 79.52 Estimated GFR (MDRD) > 60 (>60) BUN/Creatinine Ratio 22.2 H (9-20) Glucose 56 L (80-116) mg/dL Calcium 8.3 L (8.6-10.2) mg/dL Total Bilirubin 1.0 (0.1-1.3) mg/dL AST 84 H D (5-25) IU/L ALT 15 D (12-36) U/L Alkaline Phosphatase 101 (56-112) IU/L Total Protein 6.6 (6.0-8.0) g/dL Albumin 2.8 L (3.2-4.6) g/dL Globulin 3.8 g/dL Albumin/Globulin Ratio 0.7 Urine Color (YELLOW) Urine Appearance (CLEAR) Urine pH (5.0-6.5) Ur Specific [place] (1.010-1.025) Urine Protein (NEGATIVE) mg/dL Urine Glucose (UA) (NORMAL) mg/dL Urine Ketones (NEGATIVE) mg/dL Urine Occult Blood (NEGATIVE) Urine Nitrite (NEGATIVE) Urine Bilirubin (NEGATIVE) Urine Urobilinogen (NEGATIVE) mg/dL Ur Leukocyte Esterase (NEGATIVE) Urine RBC (0-5) Urine WBC (0-5) Ur Squamous Epith Cells (NS,R,O) Urine Bacteria (NS) SARS-CoV-2 RNA (QIAN) Negative (NEGATIVE) Result Diagrams: 03/19/21 06:08 03/19/21 06:08 Doe Results Last 24 hrs: Microbiology 03/18/21 14:10 Urine Culture - Preliminary Urine, Voided Gram Negative Rods Sepsis Event Note - Evaluation Sepsis Screening Result: No Definite Risk - Focused Exam Vital Signs: Vital Signs Temp Pulse Resp BP Pulse Ox 03/19/21 07:39 96.8 F L 61 18 103/64 96 03/19/21 04:00 97.2 F 63 16 139/95 H 97 03/19/21 00:00 100 F 76 16 166/94 H 97 - Problem List & Annotations (1) UTI (urinary tract infection) SNOMED Code(s): 99604448 Code(s): N39.0 - URINARY TRACT INFECTION, SITE NOT SPECIFIED Status: Acute Current Visit: Yes Qualifiers: Urinary tract infection type: site unspecified Hematuria presence: without hematuria Qualified Code(s): N39.0 - Urinary tract infection, site not specified (2) Frequent falls SNOMED Code(s): 564740839 Code(s): R29.6 - REPEATED FALLS Status: Acute Current Visit: Yes (3) Parkinson disease SNOMED Code(s): 47606209 Code(s): G20 - PARKINSON'S DISEASE Status: Chronic Current Visit: Yes (4) Controlled type 2 diabetes mellitus SNOMED Code(s): 57019591, 612806353 Code(s): E11.9 - TYPE 2 DIABETES MELLITUS WITHOUT COMPLICATIONS Status: Acute Current Visit: Yes 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 Continue IV Cipro. Consult therapy.
[2021-03-19] MEDS: Propranolol 80 MG Cap.ER PO SCH ×2 (09:25→20:07)
[2021-03-19] MEDS: glyBURIDE 5 MG Tab PO SCH ×2 (11:53→22:38)
[2021-03-19] MEDS: metFORMIN 500 MG Tab PO SCH ×2 (11:53→22:40)
[2021-03-19] MEDS ORDERED: Sodium Chloride 0.9% 10 ML Syringe FLUSH PRN (17:38)
[2021-03-19] MEDS ORDERED: 50% Dextrose in Water 50 ML Syringe IVPUSH ONE (21:33)
[2021-03-19] MEDS ORDERED: 50% Dextrose in Water 50 ML Syringe ONE (21:36)
[2021-03-20] MEDS: Ciprofloxacin in D5W 200 MG in Premix Bag 1 BAG IV SCH ×4 (05:08→16:31)
[2021-03-20] MEDS: Carbidopa/Levodopa 25-250 MG Tab PO SCH ×7 (05:59→21:06)
[2021-03-20 06:15] LABS: HEMOGLOBIN A1C 6.7 % (<5.7)
[2021-03-20] MEDS: Entacapone 200 MG Tab PO SCH (08:31)
--- NOTE | 2021-03-20 08:47 | PCM.PN ---
- General Info Date of Service: 03/20/21 Subjective Update: Akash has problems ambulating. But he reports improvement overall since Functional Status: Reports: Pain Controlled, Tolerating Diet. Denies: Ambulating - Review of Systems Pulmonary: Reports: No Symptoms Cardiovascular: Reports: No Symptoms Gastrointestinal: Reports: No Symptoms - Patient Data Vitals - Most Recent: Last Vital Signs Temp 97.3 F 03/20/21 04:00 Pulse 72 03/20/21 04:00 Resp 18 03/20/21 04:00 BP 128/66 03/20/21 04:00 Pulse Ox 97 03/20/21 04:00 Weight - Most Recent: 72.575 kg I&O - Last 24 Hours: Intake & Output 03/19/21 03/20/21 03/20/21 22:59 06:59 14:59 Intake Total 100 Balance 100 Lab Results Last 24 Hours: Laboratory Results - last 24 hr 03/19/21 03/19/21 03/19/21 Range/Units 11:03 17:33 19:00 WBC (3.2-10.1) x10-3/uL RBC (3.90-5.90) x10(6)uL Hgb (12.9-17.7) g/dL Hct (38.3-50.1) % MCV (80.8-98.7) fL MCH (27.0-33.3) pg MCHC (28.7-35.3) g/dL RDW (12.4-15.0) % Plt Count (117-477) x10(3)uL MPV (6.7-11.0) fL Neut % (Auto) (40.3-71.8) % Lymph % (Auto) (15.8-45.3) % Emmet % (Auto) (5.5-15.2) % Eos % (Auto) (0.1-6.8) % Baso % (Auto) (0.3-3.8) % Neut # (Auto) (1.7-6.9) x10-3/uL Lymph # (Auto) (0.5-4.5) x10-3/uL Emmet # (Auto) (0.0-1.2) x10-3/uL Eos # (Auto) (0.0-0.6) x10-3/uL Baso # (Auto) (0.0-0.3) x10-3/uL Sodium (135-145) mmol/L Potassium (3.5-5.3) mmol/L Chloride (100-110) mmol/L Carbon Dioxide (21-32) mmol/L BUN (7-18) mg/dL Creatinine (0.70-1.30) mg/dL Est Cr Clr Drug Dosing mL/min Estimated GFR (MDRD) (>60) BUN/Creatinine Ratio (9-20) Glucose (80-116) mg/dL POC Glucose 103 64 L 59 L (80-116) mg/dL Hemoglobin A1c (<5.7) % Calcium (8.6-10.2) mg/dL 03/19/21 03/19/21 03/19/21 Range/Units 19:48 21:24 21:37 WBC (3.2-10.1) x10-3/uL RBC (3.90-5.90) x10(6)uL Hgb (12.9-17.7) g/dL Hct (38.3-50.1) % MCV (80.8-98.7) fL MCH (27.0-33.3) pg MCHC (28.7-35.3) g/dL RDW (12.4-15.0) % Plt Count (117-477) x10(3)uL MPV (6.7-11.0) fL Neut % (Auto) (40.3-71.8) % Lymph % (Auto) (15.8-45.3) % Emmet % (Auto) (5.5-15.2) % Eos % (Auto) (0.1-6.8) % Baso % (Auto) (0.3-3.8) % Neut # (Auto) (1.7-6.9) x10-3/uL Lymph # (Auto) (0.5-4.5) x10-3/uL Emmet # (Auto) (0.0-1.2) x10-3/uL Eos # (Auto) (0.0-0.6) x10-3/uL Baso # (Auto) (0.0-0.3) x10-3/uL Sodium (135-145) mmol/L Potassium (3.5-5.3) mmol/L Chloride (100-110) mmol/L Carbon Dioxide (21-32) mmol/L BUN (7-18) mg/dL Creatinine (0.70-1.30) mg/dL Est Cr Clr Drug Dosing mL/min Estimated GFR (MDRD) (>60) BUN/Creatinine Ratio (9-20) Glucose 35 L* (80-116) mg/dL POC Glucose 45 L* 36 L* (80-116) mg/dL Hemoglobin A1c (<5.7) % Calcium (8.6-10.2) mg/dL 03/19/21 03/20/21 03/20/21 Range/Units 22:24 00:07 01:38 WBC (3.2-10.1) x10-3/uL RBC (3.90-5.90) x10(6)uL Hgb (12.9-17.7) g/dL Hct (38.3-50.1) % MCV (80.8-98.7) fL MCH (27.0-33.3) pg MCHC (28.7-35.3) g/dL RDW (12.4-15.0) % Plt Count (117-477) x10(3)uL MPV (6.7-11.0) fL Neut % (Auto) (40.3-71.8) % Lymph % (Auto) (15.8-45.3) % Emmet % (Auto) (5.5-15.2) % Eos % (Auto) (0.1-6.8) % Baso % (Auto) (0.3-3.8) % Neut # (Auto) (1.7-6.9) x10-3/uL Lymph # (Auto) (0.5-4.5) x10-3/uL Emmet # (Auto) (0.0-1.2) x10-3/uL Eos # (Auto) (0.0-0.6) x10-3/uL Baso # (Auto) (0.0-0.3) x10-3/uL Sodium (135-145) mmol/L Potassium (3.5-5.3) mmol/L Chloride (100-110) mmol/L Carbon Dioxide (21-32) mmol/L BUN (7-18) mg/dL Creatinine (0.70-1.30) mg/dL Est Cr Clr Drug Dosing mL/min Estimated GFR (MDRD) (>60) BUN/Creatinine Ratio (9-20) Glucose (80-116) mg/dL POC Glucose 49 L* 61 L 93 (80-116) mg/dL Hemoglobin A1c (<5.7) % Calcium (8.6-10.2) mg/dL 03/20/21 03/20/21 03/20/21 Range/Units 06:00 06:00 06:00 WBC 10.8 H (3.2-10.1) x10-3/uL RBC 3.49 L (3.90-5.90) x10(6)uL Hgb 10.8 L (12.9-17.7) g/dL Hct 32.8 L (38.3-50.1) % MCV 93.8 (80.8-98.7) fL MCH 30.9 (27.0-33.3) pg MCHC 32.9 (28.7-35.3) g/dL RDW 13.3 (12.4-15.0) % Plt Count 91 L (117-477) x10(3)uL MPV 9.7 (6.7-11.0) fL Neut % (Auto) 89.0 H (40.3-71.8) % Lymph % (Auto) 4.1 L (15.8-45.3) % Emmet % (Auto) 6.4 (5.5-15.2) % Eos % (Auto) 0.3 (0.1-6.8) % Baso % (Auto) 0.2 L (0.3-3.8) % Neut # (Auto) 9.6 H (1.7-6.9) x10-3/uL Lymph # (Auto) 0.4 L (0.5-4.5) x10-3/uL Emmet # (Auto) 0.7 (0.0-1.2) x10-3/uL Eos # (Auto) 0.0 (0.0-0.6) x10-3/uL Baso # (Auto) 0.0 (0.0-0.3) x10-3/uL Sodium 134 L (135-145) mmol/L Potassium 3.9 (3.5-5.3) mmol/L Chloride 101 (100-110) mmol/L Carbon Dioxide 26 (21-32) mmol/L BUN 20 H (7-18) mg/dL Creatinine 1.0 (0.70-1.30) mg/dL Est Cr Clr Drug Dosing 71.57 mL/min Estimated GFR (MDRD) > 60 (>60) BUN/Creatinine Ratio 20.0 (9-20) Glucose 88 (80-116) mg/dL POC Glucose (80-116) mg/dL Hemoglobin A1c 6.7 H (<5.7) % Calcium 7.8 L (8.6-10.2) mg/dL Doe Results Last 24 Hours: Microbiology 03/18/21 14:10 Urine Culture - Preliminary Urine, Voided Gram Negative Rods Med Orders - Current: Current Medications Aspirin (Aspirin 81 Mg Tab.Ec) 81 mg PO DAILY [facility] Carbidopa/Levodopa (Carbidopa/Levodopa 25-250 Mg Tab) 1 tab PO 6XDAY [facility] Last Admin: 03/20/21 05:59 Dose: 1 tab Documented by: Carbidopa/Levodopa (Carbidopa/Levodopa 25-100 Mg Tab) 1 tab PO 6XDAY [facility] Ciprofloxacin/Dextrose 200 mg/ (Premix) 100 mls @ 100 mls/hr IV Q12H [facility] Last Admin: 03/20/21 05:08 Dose: 100 mls/hr Documented by: Propranolol HCl (Propranolol 40 Mg Tab) 40 mg PO BID [facility] Sodium Chloride (Sodium Chloride 0.9% 10 Ml Syringe) 10 ml FLUSH ASDIRECTED PRN PRN Reason: Keep Vein Open Last Admin: 03/19/21 21:46 Dose: 10 ml Documented by: Discontinued Medications Dextrose/Water (50% Dextrose In Water 50 Ml Syringe) 50 ml IVPUSH ONETIME ONE Stop: 03/19/21 21:34 Last Admin: 03/19/21 21:44 Dose: 50 ml Documented by: Dextrose/Water (50% Dextrose In Water 50 Ml Syringe) Confirm Administered Dose 50 ml .ROUTE .STK-MED ONE Stop: 03/19/21 21:37 Last Admin: 03/19/21 21:45 Dose: Not Given Documented by: Entacapone (Entacapone 200 Mg Tab) 200 mg PO 6XDAY [facility] Last Admin: 03/20/21 08:31 Dose: Not Given Documented by: Glyburide (Glyburide 5 Mg Tab) 5 mg PO BID [facility] Last Admin: 03/19/21 22:38 Dose: Not Given Documented by: Sodium Chloride (Normal Saline) 1,000 mls @ 125 mls/hr IV ASDIRECTED [facility] Last Admin: 03/19/21 03:28 Dose: 125 mls/hr Documented by: Ciprofloxacin/Dextrose 200 mg/ (Premix) 100 mls @ 100 mls/hr IV Q12H [facility] Last Admin: 03/18/21 17:16 Dose: Not Given Documented by: Metformin HCl (Metformin 500 Mg Tab) 500 mg PO BID [facility] Last Admin: 03/19/21 22:40 Dose: Not Given Documented by: Propranolol HCl (Propranolol 80 Mg Cap.Er) 40 mg PO BID [facility] Last Admin: 03/19/21 20:07 Dose: 40 mg Documented by: - Exam General: Alert, Oriented, Cooperative Lungs: Clear to Auscultation Cardiovascular: Regular Rate Extremities: Normal Inspection, Limited Range of Motion Neurological: No New Focal Deficit, Normal Speech. No: Normal Gait Psy/Mental Status: Alert, Normal Affect - Patient Data Lab Results Last 24 hrs: Laboratory Results - last 24 hr 03/19/21 03/19/21 03/19/21 Range/Units 11:03 17:33 19:00 WBC (3.2-10.1) x10-3/uL RBC (3.90-5.90) x10(6)uL Hgb (12.9-17.7) g/dL Hct (38.3-50.1) % MCV (80.8-98.7) fL MCH (27.0-33.3) pg MCHC (28.7-35.3) g/dL RDW (12.4-15.0) % Plt Count (117-477) x10(3)uL MPV (6.7-11.0) fL Neut % (Auto) (40.3-71.8) % Lymph % (Auto) (15.8-45.3) % Emmet % (Auto) (5.5-15.2) % Eos % (Auto) (0.1-6.8) % Baso % (Auto) (0.3-3.8) % Neut # (Auto) (1.7-6.9) x10-3/uL Lymph # (Auto) (0.5-4.5) x10-3/uL Emmet # (Auto) (0.0-1.2) x10-3/uL Eos # (Auto) (0.0-0.6) x10-3/uL Baso # (Auto) (0.0-0.3) x10-3/uL Sodium (135-145) mmol/L Potassium (3.5-5.3) mmol/L Chloride (100-110) mmol/L Carbon Dioxide (21-32) mmol/L BUN (7-18) mg/dL Creatinine (0.70-1.30) mg/dL Est Cr Clr Drug Dosing mL/min Estimated GFR (MDRD) (>60) BUN/Creatinine Ratio (9-20) Glucose (80-116) mg/dL POC Glucose 103 64 L 59 L (80-116) mg/dL Hemoglobin A1c (<5.7) % Calcium (8.6-10.2) mg/dL 03/19/21 03/19/21 03/19/21 Range/Units 19:48 21:24 21:37 WBC (3.2-10.1) x10-3/uL RBC (3.90-5.90) x10(6)uL Hgb (12.9-17.7) g/dL Hct (38.3-50.1) % MCV (80.8-98.7) fL MCH (27.0-33.3) pg MCHC (28.7-35.3) g/dL RDW (12.4-15.0) % Plt Count (117-477) x10(3)uL MPV (6.7-11.0) fL Neut % (Auto) (40.3-71.8) % Lymph % (Auto) (15.8-45.3) % Emmet % (Auto) (5.5-15.2) % Eos % (Auto) (0.1-6.8) % Baso % (Auto) (0.3-3.8) % Neut # (Auto) (1.7-6.9) x10-3/uL Lymph # (Auto) (0.5-4.5) x10-3/uL Emmet # (Auto) (0.0-1.2) x10-3/uL Eos # (Auto) (0.0-0.6) x10-3/uL Baso # (Auto) (0.0-0.3) x10-3/uL Sodium (135-145) mmol/L Potassium (3.5-5.3) mmol/L Chloride (100-110) mmol/L Carbon Dioxide (21-32) mmol/L BUN (7-18) mg/dL Creatinine (0.70-1.30) mg/dL Est Cr Clr Drug Dosing mL/min Estimated GFR (MDRD) (>60) BUN/Creatinine Ratio (9-20) Glucose 35 L* (80-116) mg/dL POC Glucose 45 L* 36 L* (80-116) mg/dL Hemoglobin A1c (<5.7) % Calcium (8.6-10.2) mg/dL 03/19/21 03/20/21 03/20/21 Range/Units 22:24 00:07 01:38 WBC (3.2-10.1) x10-3/uL RBC (3.90-5.90) x10(6)uL Hgb (12.9-17.7) g/dL Hct (38.3-50.1) % MCV (80.8-98.7) fL MCH (27.0-33.3) pg MCHC (28.7-35.3) g/dL RDW (12.4-15.0) % Plt Count (117-477) x10(3)uL MPV (6.7-11.0) fL Neut % (Auto) (40.3-71.8) % Lymph % (Auto) (15.8-45.3) % Emmet % (Auto) (5.5-15.2) % Eos % (Auto) (0.1-6.8) % Baso % (Auto) (0.3-3.8) % Neut # (Auto) (1.7-6.9) x10-3/uL Lymph # (Auto) (0.5-4.5) x10-3/uL Emmet # (Auto) (0.0-1.2) x10-3/uL Eos # (Auto) (0.0-0.6) x10-3/uL Baso # (Auto) (0.0-0.3) x10-3/uL Sodium (135-145) mmol/L Potassium (3.5-5.3) mmol/L Chloride (100-110) mmol/L Carbon Dioxide (21-32) mmol/L BUN (7-18) mg/dL Creatinine (0.70-1.30) mg/dL Est Cr Clr Drug Dosing mL/min Estimated GFR (MDRD) (>60) BUN/Creatinine Ratio (9-20) Glucose (80-116) mg/dL POC Glucose 49 L* 61 L 93 (80-116) mg/dL Hemoglobin A1c (<5.7) % Calcium (8.6-10.2) mg/dL 03/20/21 03/20/21 03/20/21 Range/Units 06:00 06:00 06:00 WBC 10.8 H (3.2-10.1) x10-3/uL RBC 3.49 L (3.90-5.90) x10(6)uL Hgb 10.8 L (12.9-17.7) g/dL Hct 32.8 L (38.3-50.1) % MCV 93.8 (80.8-98.7) fL MCH 30.9 (27.0-33.3) pg MCHC 32.9 (28.7-35.3) g/dL RDW 13.3 (12.4-15.0) % Plt Count 91 L (117-477) x10(3)uL MPV 9.7 (6.7-11.0) fL Neut % (Auto) 89.0 H (40.3-71.8) % Lymph % (Auto) 4.1 L (15.8-45.3) % Emmet % (Auto) 6.4 (5.5-15.2) % Eos % (Auto) 0.3 (0.1-6.8) % Baso % (Auto) 0.2 L (0.3-3.8) % Neut # (Auto) 9.6 H (1.7-6.9) x10-3/uL Lymph # (Auto) 0.4 L (0.5-4.5) x10-3/uL Emmet # (Auto) 0.7 (0.0-1.2) x10-3/uL Eos # (Auto) 0.0 (0.0-0.6) x10-3/uL Baso # (Auto) 0.0 (0.0-0.3) x10-3/uL Sodium 134 L (135-145) mmol/L Potassium 3.9 (3.5-5.3) mmol/L Chloride 101 (100-110) mmol/L Carbon Dioxide 26 (21-32) mmol/L BUN 20 H (7-18) mg/dL Creatinine 1.0 (0.70-1.30) mg/dL Est Cr Clr Drug Dosing 71.57 mL/min Estimated GFR (MDRD) > 60 (>60) BUN/Creatinine Ratio 20.0 (9-20) Glucose 88 (80-116) mg/dL POC Glucose (80-116) mg/dL Hemoglobin A1c 6.7 H (<5.7) % Calcium 7.8 L (8.6-10.2) mg/dL Result Diagrams: 03/20/21 06:00 03/20/21 06:00 Doe Results Last 24 hrs: Microbiology 03/18/21 14:10 Urine Culture - Preliminary Urine, Voided Gram Negative Rods Sepsis Event Note - Evaluation Sepsis Screening Result: No Definite Risk - Focused Exam Vital Signs: Vital Signs Temp Pulse Resp BP Pulse Ox 03/20/21 04:00 97.3 F 72 18 128/66 97 03/20/21 00:00 97.6 F 76 18 128/80 97 - Problem List & Annotations (1) UTI (urinary tract infection) SNOMED Code(s): 98354248 Code(s): N39.0 - URINARY TRACT INFECTION, SITE NOT SPECIFIED Status: Acute Current Visit: Yes Qualifiers: Urinary tract infection type: site unspecified Hematuria presence: without hematuria Qualified Code(s): N39.0 - Urinary tract infection, site not specified (2) Frequent falls SNOMED Code(s): 982611068 Code(s): R29.6 - REPEATED FALLS Status: Acute Current Visit: Yes (3) Parkinson disease SNOMED Code(s): 98912845 Code(s): G20 - PARKINSON'S DISEASE Status: Chronic Current Visit: Yes (4) Controlled type 2 diabetes mellitus SNOMED Code(s): 17847620, 171767670 Code(s): E11.9 - TYPE 2 DIABETES MELLITUS WITHOUT COMPLICATIONS Status: Acute Current Visit: Yes Qualifiers: Diabetes mellitus assistant terminal manager insulin use: without senior care use - Problem List Review Problem List Initiated/Reviewed/Updated: Yes - My Orders Last 24 Hours: My Active Orders 03/19/21 09:18 Glucose [Blood Glucose Check, Bedside] [RC] TIDAC 03/19/21 Lunch Regular Diet [DIET] 03/19/21 17:38 Sodium Chloride 0.9% [Saline Flush] 10 ml FLUSH ASDIRECTED PRN 03/20/21 09:00 Aspirin [Halfprin] 81 mg PO DAILY Carbidopa/Levodopa [Sinemet 25-100 mg] 1 tab PO 6XDAY Propranolol [Inderal] 40 mg PO BID - Plan Plan:: Consult physical therapy. To consent home medications. It is possible that he "tongue home the next 1-2 days with physical therapy. Discontinue anti-glycemic medications due to hypoglycemia.
[2021-03-20] MEDS ORDERED: Aspirin 81 MG Tab.EC PO SCH (09:00)
[2021-03-20] MEDS: Carbidopa/Levodopa 25-100 MG Tab PO SCH ×6 (09:15→21:07)
[2021-03-20] MEDS: Propranolol 40 MG Tab PO SCH ×2 (09:15→21:06)
--- NOTE | 2021-03-21 10:11 | DISCH ---
DISCHARGE DATE: 03/21/2021 REASON FOR ADMISSION: 1. Urinary tract infection. 2. Parkinson disease. REASON FOR : Acute cardiopulmonary and respiratory failure, possibly due to an CO. BRIEF HISTORY: A 70-year-old male who was admitted for UTI after a fall at home. He was found to grow E coli in the urine and was placed on IV fluids and IV antibiotics. He seemed to be improving, but unexpectedly at 1:40 a.m. on 03/21. I spoke with his son and they are not interested in autopsy. I spent more than 35 minutes in the discharge of the patient. /[id number] MAYDA/NALDO
== END 2021-03-21 01:40 | disposition expired | DRG 689 ==
LOC: FB.ED 12:27 → FB.MS 14:56
PROVIDERS: ADMIT Family Medicine; ATTEND Family Medicine
DX: A41.9 Sepsis, unspecified organism (principal); N39.0 Urinary tract infection, site not specified; I21.A1 Myocardial infarction type 2; J96.90 Respiratory failure, unspecified, unspecified whether with hypoxia or hypercapnia; E11.9 Type 2 diabetes mellitus without complications; R09.2 Respiratory arrest; R29.6 Repeated falls; W18.30XA Fall on same level, unspecified, initial encounter; G20 Parkinson's disease; E78.00 Pure hypercholesterolemia, unspecified; Z20.822 Contact with and (suspected) exposure to COVID-19; B96.20 Unspecified Escherichia coli [E. coli] as the cause of diseases classified elsewhere; E11.649 Type 2 diabetes mellitus with hypoglycemia without coma; Z79.82 Long term (current) use of aspirin; Z79.84 Long term (current) use of oral hypoglycemic drugs; Z79.899 Other long term (current) drug therapy; Z91.81 History of falling; W17.89XA Other fall from one level to another, initial encounter; Y92.091 Bathroom in other non-institutional residence as the place of occurrence of the external cause
CPT/HCPCS: 36415; 70450; 73502-RT; 80048; 80053; 81001; 82947; 83036; 85025; 87086; 87088; 87186; 97165-GO; 99222; 99232; 99239; 99285-25; A9270-GY; J0744; J7030; U0002